=== PATIENT | male | born 1980 | race Caucasian/White ===

== ENCOUNTER 2019-05-31 13:10 | Emergency (ER) | payer MEDICAID ==
[~2019-05-31] VITALS: Ht 180.3 cm; Wt 74.1 kg
[~2019-05-31 13:10] MED LIST: CHLO25CA10 PO; IBUP-1984 PO; NAPR-1144 PO; NO HOME MEDS
[2019-05-31 13:28] VITALS: BP 121/78
[2019-05-31] MEDS ORDERED: PRED20TA PO (13:57)
[2019-05-31] MEDS ORDERED: predniSONE 20 mg tablet PO ONE (14:00)
== END 2019-05-31 14:18 | disposition home or self-care (01) ==
LOC: ER 13:10
DX: L23.7 Allergic contact dermatitis due to plants, except food (principal); F17.200 Nicotine dependence, unspecified, uncomplicated; F10.99 Alcohol use, unspecified with unspecified alcohol-induced disorder; F15.90 Other stimulant use, unspecified, uncomplicated; Z60.2 Problems related to living alone; Z56.0 Unemployment, unspecified; Z79.899 Other long term (current) drug therapy; Y90.9 Presence of alcohol in blood, level not specified
CPT/HCPCS: 99283; J7512

== ENCOUNTER 2019-08-06 17:29 | Emergency (ER) | payer MEDICAID ==
[~2019-08-06] VITALS: Ht 172.7 cm; Wt 81.0 kg
[2019-08-06 17:37] VITALS: BP 112/62
[2019-08-06] MEDS ORDERED: normal saline 1000ML IV soln IVB ONE (18:05)
[2019-08-07] MEDS ORDERED: HYDR-3686 PO ×2 (13:12→22:11)
[2019-08-07] MEDS ORDERED: IBUP-2697 PO (13:12)
[2019-08-07] MEDS ORDERED: ATOM80CA3 PO (13:12)
[2019-08-07] MEDS ORDERED: BUPR150T8 PO ×2 (13:12→22:11)
[2019-08-07] MEDS ORDERED: AMPH20CA3 PO (13:12)
[2019-08-07] MEDS ORDERED: ARIP15TA3 PO (13:12)
[2019-08-07] MEDS ORDERED: ARIP15TA8 PO (22:11)
[2019-08-07] MEDS ORDERED: ATOM80CA PO (22:11)
== END 2019-08-06 18:26 | disposition left against medical advice (07) ==
LOC: ER 17:30
DX: F10.10 Alcohol abuse, uncomplicated (principal); Z53.21 Procedure and treatment not carried out due to patient leaving prior to being seen by health care provider
CPT/HCPCS: 71045

== ENCOUNTER 2019-08-06 20:21 | Emergency (ER) | payer MEDICAID ==
[~2019-08-06] VITALS: Ht 177.8 cm; Wt 78.2 kg
--- NOTE | 2019-08-06 20:52 | NUR ---
PT PLACED ON [address] PAYNE. PT REPORTS SI, WITH NO PLAN OR HX OF SA OR SI. PT IS TEARFUL AND SAYS THAT HE'S HOMELESS AND HASN'T BEEN TAKING HIS PSYCH MEDICATIONS. PT CAN'T REMEMBER THE MEDICATIONS HES SUPPOSE TO BE TAKING. PT SAYS THAT HE USUALY LIVES WITH HIS FATHER IN [place], WHEN ASKED WHAT HE WAS DOING IN [place] OR HOW HE GOT HERE PT COULDN'T PROVIDE THAT INFORMATION. PT WAS BIB EMS EARLIER THIS EVENING FOR ETOH, BEFORE PT COULD RECIEVE ANY TX HE GOT AGITATED AND LEFT THE ED. PT THEN RETURNED TO THE ED COMPLAINING OF FEELING SUICIDAL. PT IS CURRENTLY CALM COOPERATING WITH STAFF.
[2019-08-06 20:58] LABS: CLARITY,URINE CLEAR (Clear); COLOR,URINE YELLOW (Yellow); GLUCOSE, URINE NEGATIVE (Neg); KETONES,URINE TRACE mg/dl (Neg); LEUKOCYTE ESTERASE ,URINE NEGATIVE (Neg); NITRITES, URINE NEGATIVE (Neg); OCCULT BLOOD,URINE NEGATIVE (Neg); PH,URINE 5.5 (4.8-8.0); PROTEIN,URINE NEGATIVE (Neg); UROBILINOGEN,URINE 0.2 E.U/dL (0.2-1.0)
[2019-08-06 21:04] LABS: UA COLLECTION TYPE CLN CATCH MIDSTREAM
--- NOTE | 2019-08-06 21:09 | NUR ---
PT MOVED FROM ED BED 7 TO ED OVERFLOW BED 22.
[2019-08-06 21:17] LABS: URINE AMPHETAMINE SCREEN POSITIVE (Neg); URINE BARBITUATE SCREEN NEGATIVE (Neg); URINE BENZODIAZEPINES SCREEN NEGATIVE (Neg); URINE CANNABINOID SCREEN NEGATIVE (Neg); URINE COCAINE SCREEN NEGATIVE (Neg); URINE METHADONE SCREEN NEGATIVE (Neg); URINE OPIATE SCREEN NEGATIVE (Neg); URINE PHENCYCLIDINE SCREEN NEGATIVE (Neg)
[2019-08-06 21:21] LABS: BASOPHILS # (AUTO) 0.1 X10'3 (0-0.2); BASOPHILS % (AUTO) 0.4 % (0-1); EOSINOPHILS # (AUTO) 0.1 X10'3 (0-0.9); EOSINOPHILS % (AUTO) 0.4 % (0-6); HEMATOCRIT 49.7 % (42.0-52.0); HEMOGLOBIN 16.9 g/dl (14.0-17.9); LYMPHOCYTES # (AUTO) 2.4 X10'3 (1.1-4.8); LYMPHOCYTES % (AUTO) 17.1 % (21-51); MEAN CORPUSCULAR HEMOGLOBIN 29.5 PG (27.0-31.0); MEAN CORPUSCULAR HGB CONC 34.1 g/dL (33.0-36.5); MEAN CORPUSCULAR VOLUME 86.6 FL (78-98); MEAN PLATELET VOLUME 8.4 FL (7.4-10.4); MONOCYTES # (AUTO) 0.6 X10'3 (0-0.9); MONOCYTES % (AUTO) 4.5 % (2-12); NEUTROPHILS # (AUTO) 10.7 X10'3 (1.8-7.7); NEUTROPHILS % (AUTO) 77.6 % (42-75); PLATELET COUNT 238 X10'3 (140-440); RED BLOOD COUNT 5.74 X10'6 (4.70-6.10); RED CELL DISTRIBUTION WIDTH 12.6 % (11.5-14.5); WHITE BLOOD COUNT 13.8 X10'3 (4.5-11.0)
[2019-08-06 21:33] LABS: ALANINE AMINOTRANSFERASE 49 U/L (12-78); ALBUMIN 4.6 G/DL (3.4-5.0); ALBUMIN/GLOBULIN RATIO 1.2 (1.1-1.5); ALKALINE PHOSPHATASE 97 IU/L (46-116); ANION GAP 17 (8-16); ASPARTATE AMINO TRANSFERASE 70 U/L (10-37); BILIRUBIN,TOTAL 0.6 MG/DL (0.1-1.0); BLOOD UREA NITROGEN 11 MG/DL (7-18); BUN/CREATININE RATIO 10.2 (5.4-32.0); CALCIUM 8.4 MG/DL (8.5-10.1); CHLORIDE 106 MMOL/L (99-107); CREATININE 1.08 MG/DL (0.60-1.10); GLUCOSE 109 MG/DL (70-104); SODIUM 145 MMOL/L (135-145); TOTAL CARBON DIOXIDE 22.2 MMOL/L (24-32); TOTAL PROTEIN 8.6 G/DL (6.4-8.2); eGFR 77 ML/MIN
[2019-08-06 21:42] LABS: ACETAMINOPHEN < 2.0 UG/ML (10-30)
--- NOTE | 2019-08-07 05:13 | NUR ---
Packet faxed to [facility].
--- NOTE | 2019-08-07 06:25 | NUR ---
Patient sleeping supine. No distress observed. Continue to monitor.
--- NOTE | 2019-08-07 08:20 | NUR ---
Patient sitting up and eating breakfast. No distress observed. Continue to monitor.
--- NOTE | 2019-08-07 10:18 | NUR ---
Patient sitting up in bed. No distress observed. Continue to monitor.
--- NOTE | 2019-08-07 11:50 | NUR ---
TIM Perkins speaking with patient about going to the [facility]. Continue to monitor.
[2019-08-07] MEDS ORDERED: IBUP-2697 PO (13:12)
[2019-08-07] MEDS ORDERED: AMPH20CA3 PO (13:12)
[2019-08-07] MEDS ORDERED: HYDR-3686 PO ×2 (13:12→22:11)
[2019-08-07] MEDS ORDERED: BUPR150T8 PO ×2 (13:12→22:11)
[2019-08-07] MEDS ORDERED: ATOM80CA3 PO (13:12)
[2019-08-07] MEDS ORDERED: ARIP15TA3 PO (13:12)
[2019-08-07] MEDS ORDERED: ibuprofen 200mg tablet PO PRN (14:00)
[2019-08-07] MEDS: DEXTROAMPHETAMINE PO SCH (14:20)
[2019-08-07] MEDS: [UNRECOGNIZED DRUG - OTHER] PO SCH (14:20)
--- NOTE | 2019-08-07 15:57 | NUR ---
Patient is sleeping on left side. No distress observed. Continue to monitor.
--- NOTE | 2019-08-07 16:15 | NUR ---
[facility] notified and will return call regarding time and day Javy will interview him for [facility].
--- NOTE | 2019-08-07 16:35 | NUR ---
Patient accepted at [facility]. They will take him in the morning. Patient still needs RXs for [address] Roque aware. RN gave Dr Roque a list of medications.
--- NOTE | 2019-08-07 19:55 | NUR ---
One to one with the patient to assess severity of depressive symptoms and self harm risk. Discussed the plan of care with the patient and he is aware that he will be discharging tomorrow to the [facility] and he stated that he felt good with the plan. He stated that he was living with his dad up in [place] but they had some kind of misunderstanding and he feels he most likely is not able to return there. He admitted to drug and etoh abuse after coming to [place]. His affect is blunted. He denies A/V. He stated that he feels better knowing he will be helped. Stated he believes he can be safe at the [facility]. He currently is not on a psychiatric hold.
[2019-08-07] MEDS: hydrOXYzine 25 MG tablet PO SCH (20:22)
[2019-08-07] MEDS ORDERED: ATOM80CA PO (22:11)
[2019-08-07] MEDS ORDERED: ARIP15TA8 PO (22:11)
--- NOTE | 2019-08-07 22:14 | NUR ---
The patient currently appears to be sleeping
--- NOTE | 2019-08-08 01:03 | NUR ---
The patient appears to be asleep
--- NOTE | 2019-08-08 03:34 | NUR ---
The patient appears to be asleep
--- NOTE | 2019-08-08 05:39 | NUR ---
The patient appears to be slept well during the night. He was up out of bed once during the night to use the bathroom
--- NOTE | 2019-08-08 06:53 | NUR ---
pt is sleeping on left side. breathing and color WNL
[2019-08-08] MEDS: DEXTROAMPHETAMINE PO SCH (08:00)
[2019-08-08] MEDS ORDERED: ATOMOXETINE 80 MG CAPSULE PO SCH (08:00)
[2019-08-08] MEDS: [UNRECOGNIZED DRUG - OTHER] PO SCH (08:00)
[2019-08-08] MEDS ORDERED: buPROPion SR 150mg tablet PO SCH (08:00)
[2019-08-08] MEDS ORDERED: ARIPIPRAZOLE 15 MG TABLET PO SCH (08:00)
[2019-08-08] MEDS: hydrOXYzine 25 MG tablet PO SCH (08:21)
--- NOTE | 2019-08-08 09:16 | NUR ---
PT ATE BREAKFAST AND NOW SLEEPING
--- NOTE | 2019-08-08 10:15 | NUR ---
Discharge Note Patient discharged to the [facility], ambulatory, with all his personal possessions, accompanied by the electric pile driver operator from [facility]. Escorted out of the ER by Security. Denies suicidal ideation or intent. States "I didn't have my psyche meds and I got stupid and I got drunk." Looking forward to being discharged to the [facility] and getting back on his medications.
[2019-08-08 11:24] VITALS: BP 120/70
== END 2019-08-08 10:15 ==
LOC: ER 20:21
DX: F10.129 Alcohol abuse with intoxication, unspecified (principal); F41.9 Anxiety disorder, unspecified; R45.851 Suicidal ideations; F32.9 Major depressive disorder, single episode, unspecified; F15.90 Other stimulant use, unspecified, uncomplicated; Z56.0 Unemployment, unspecified; Z79.899 Other long term (current) drug therapy
CPT/HCPCS: 36415; 80053; 80305; 80320; 80329; 81003; 84443; 85025; 99285; Z7610

== ENCOUNTER 2020-03-03 19:05 | Emergency (ER) | payer MEDICAID ==
[~2020-03-03] VITALS: Ht 180.3 cm; Wt 93.1 kg
[~2020-03-03 19:05] MED LIST changes: +AMPH20CA3 PO; +ARIP15TA3 PO; +ARIP15TA8 PO; +ATOM80CA PO; +ATOM80CA3 PO; +BUPR150T8 PO; -CHLO25CA10 PO; +HYDR-3686 PO; -IBUP-1984 PO; +IBUP-2697 PO; -NAPR-1144 PO; -NO HOME MEDS
[2020-03-03 19:07] VITALS: BP 125/79
[2020-03-03] MEDS ORDERED: DOXY100T56 PO (19:26)
== END 2020-03-03 19:37 | disposition home or self-care (01) ==
LOC: ER 19:06
DX: S40.862A Insect bite (nonvenomous) of left upper arm, initial encounter (principal); F41.9 Anxiety disorder, unspecified; F32.9 Major depressive disorder, single episode, unspecified; F15.90 Other stimulant use, unspecified, uncomplicated; Z72.89 Other problems related to lifestyle; Z98.890 Other specified postprocedural states; Z56.0 Unemployment, unspecified; Z79.2 Long term (current) use of antibiotics; Z79.899 Other long term (current) drug therapy; Y93.89 Activity, other specified; Y92.89 Other specified places as the place of occurrence of the external cause; Y99.8 Other external cause status
CPT/HCPCS: 99283; 99284

== ENCOUNTER 2020-04-07 11:02 | Emergency (ER) | payer MEDICAID ==
[~2020-04-07] VITALS: Ht 180.3 cm; Wt 80.0 kg
[2020-04-07 11:07] VITALS: BP 142/96
[2020-04-07] MEDS ORDERED: CEPH250T PO (12:03)
[2020-04-07] MEDS ORDERED: DIPH25TA62 PO (12:03)
[2020-04-07] MEDS ORDERED: PRED10TA23 PO (12:03)
== END 2020-04-07 12:25 | disposition home or self-care (01) ==
LOC: ER 11:03
DX: L23.7 Allergic contact dermatitis due to plants, except food (principal); F41.9 Anxiety disorder, unspecified; F32.9 Major depressive disorder, single episode, unspecified; F12.90 Cannabis use, unspecified, uncomplicated; F10.20 Alcohol dependence, uncomplicated; Z56.0 Unemployment, unspecified; Z60.2 Problems related to living alone; Z79.899 Other long term (current) drug therapy; Y90.0 Blood alcohol level of less than 20 mg/100 ml
CPT/HCPCS: 99283

== ENCOUNTER 2020-05-06 07:31 | Emergency (ER) | payer MEDICAID ==
[~2020-05-06] VITALS: Ht 180.3 cm; Wt 82.5 kg
[~2020-05-06 07:31] MED LIST changes: +DIPH25TA62 PO; +PRED10TA23 PO
[2020-05-06] MEDS ORDERED: PRED20TA PO (08:41)
[2020-05-06] MEDS ORDERED: CEPH-572 PO (08:41)
[2020-05-06 09:16] VITALS: BP 133/94
== END 2020-05-06 09:21 | disposition home or self-care (01) ==
LOC: ER 07:31
DX: L25.9 Unspecified contact dermatitis, unspecified cause (principal); L03.116 Cellulitis of left lower limb; F41.9 Anxiety disorder, unspecified; F32.9 Major depressive disorder, single episode, unspecified; F15.90 Other stimulant use, unspecified, uncomplicated; Z60.2 Problems related to living alone; Z59.0 Homelessness; Z56.0 Unemployment, unspecified; Z98.890 Other specified postprocedural states; Z79.2 Long term (current) use of antibiotics; Z79.899 Other long term (current) drug therapy
CPT/HCPCS: 87070; 99283

== ENCOUNTER 2020-06-13 22:13 | Emergency (ER) | payer MEDICAID ==
[~2020-06-13] VITALS: Ht 180.3 cm; Wt 77.0 kg
[~2020-06-13 22:13] MED LIST changes: -PRED10TA23 PO
[2020-06-13] MEDS ORDERED: BUPR150T8 PO (22:42)
[2020-06-13] MEDS ORDERED: ARIP15TA3 PO (22:42)
[2020-06-13] MEDS ORDERED: buPROPion SR 150mg tablet PO ONE (22:45)
[2020-06-13] MEDS ORDERED: aripiprazole 5mg tablet PO SCH (22:45)
[2020-06-13 23:04] VITALS: BP 163/100
== END 2020-06-13 23:09 | disposition home or self-care (01) ==
LOC: ER 22:14
DX: F20.9 Schizophrenia, unspecified (principal); F22 Delusional disorders; F41.9 Anxiety disorder, unspecified; F32.9 Major depressive disorder, single episode, unspecified; F17.200 Nicotine dependence, unspecified, uncomplicated; F12.90 Cannabis use, unspecified, uncomplicated; F15.90 Other stimulant use, unspecified, uncomplicated; Z98.890 Other specified postprocedural states; Z59.0 Homelessness; Z56.0 Unemployment, unspecified; Z79.899 Other long term (current) drug therapy
CPT/HCPCS: 99283; 99284

== ENCOUNTER 2020-06-30 05:02 | Emergency (ER) | payer MEDICAID ==
[~2020-06-30] VITALS: Ht 180.3 cm; Wt 70.4 kg
[2020-06-30] MEDS ORDERED: LIDO700A32 TOP (06:41)
[2020-06-30] MEDS ORDERED: NAPR-56 PO (06:41)
[2020-06-30] MEDS ORDERED: LIDOcaine 5% patch TP STA (06:42)
[2020-06-30] MEDS ORDERED: naproxen sodium 220mg tablet PO STA (06:57)
--- NOTE | 2020-06-30 07:10 | NUR ---
Pt ambulated to x-ray with tech without any difficulty.
[2020-06-30 07:41] VITALS: BP 125/90
[2020-06-30] MEDS ORDERED: naproxen sodium 220mg tablet PO SCH (08:00)
== END 2020-06-30 07:43 | disposition home or self-care (01) ==
LOC: EDUNIT# 05:02 → ER 05:07
DX: S20.212A Contusion of left front wall of thorax, initial encounter (principal); M54.5 Low back pain; F41.9 Anxiety disorder, unspecified; F32.9 Major depressive disorder, single episode, unspecified; F20.9 Schizophrenia, unspecified; F17.200 Nicotine dependence, unspecified, uncomplicated; F12.90 Cannabis use, unspecified, uncomplicated; F15.90 Other stimulant use, unspecified, uncomplicated; Z60.2 Problems related to living alone; Z59.0 Homelessness; Z56.0 Unemployment, unspecified; Z98.890 Other specified postprocedural states; Z72.89 Other problems related to lifestyle; Z79.899 Other long term (current) drug therapy; V19.9XXA Pedal cyclist (driver) (passenger) injured in unspecified traffic accident, initial encounter; Y93.89 Activity, other specified; Y92.89 Other specified places as the place of occurrence of the external cause; Y99.8 Other external cause status
CPT/HCPCS: 71101; 99283